=== PATIENT | male | born 1950 | race Caucasian/White ===

== ENCOUNTER 2020-05-15 09:21 | Inpatient (IN) ==
--- NOTE | 2020-04-25 19:48 | PAT Medication Instructions ---
Medication Instructions Date of Service April 25, 2020 Home Medications Aspirin [Aspir-81] 81 mg PO QAM atenolol 50 mg PO QAM atorvastatin 40 mg PO QAM naproxen sodium [Aleve] 220 mg PO QAM omeprazole 20 mg PO DAILY PRN ASK your surgeon for instructions naproxen sodium [Aleve] 220 mg PO QAM Take morning of surgery With a small sip of water, OTHERWISE NOTHING TO EAT OR DRINK AFTER MIDNIGHT: Aspirin [Aspir-81] 81 mg PO QAM atenolol 50 mg PO QAM atorvastatin 40 mg PO QAM omeprazole 20 mg PO DAILY PRN (if needed) Other Notes If you have any questions please call us at [phone] or [phone] or [phone] or [phone]
--- NOTE | 2020-04-27 11:53 | Anesthesiology Consultation ---
Date of Service April 27, 2020 Assessment & Plan (1) Encounter for pre-operative examination: Per PAT assessment on 04/27: Travel screen- Lives in [facility]. Travel to [place] weekly (to visit family). Used social distancing, mask, frequent hand washing. No known COVID-19 positive contacts. No current COVID-19 related symptoms. No hx of COVID-19 testing in past 30 days. Patient scheduled for preop protocol COVID-19 testing on 05/09 ([facility] [place] Awaiting results. Chart Review Chart Review: Acceptable Risk for Surgery (pending COVID testing) and Patient seen in Pre Admission Testing Teaching & Discussion Pre-Anesthesia Teaching/Discussion Notes: Instructed NPO after midnight before surgery,except medications with 15 cc of water. Medication instructions provided according to the [facility] guidelines. History Surgery Operation Date: 05/15/20 09:30 Proposed Procedures p Left Total Knee Arthroplasty - Mendel Bray MD Height/Weight Height: 5 ft 10 in Weight: 95 kg Allergies Allergy/AdvReac Type Severity Reaction Status Date / Time No Known Allergies Allergy Unknown Verified 04/25/20 13:19 Medications Home Medications Medication Instructions Recorded Confirmed Last Taken aspirin [Aspir-81] 81 mg PO QAM 04/25/20 04/25/20 Unknown atenolol 50 mg PO QAM 04/25/20 04/25/20 Unknown atorvastatin 40 mg PO QAM 04/25/20 04/25/20 Unknown naproxen sodium [Aleve] 220 mg PO QAM 04/25/20 04/25/20 Unknown omeprazole 20 mg PO DAILY PRN 04/25/20 04/25/20 Unknown Past Medical History Medical History GERD (gastroesophageal reflux disease) controlled Hearing deficit Hyperlipidemia Hypertension Kidney stones Osteoarthritis Exercise / Class Metabolic Activity II 4-5 Yardwork/Stairs/Walk up hill Past Family History Family History Mother Diabetes Father Myocardial infarction Past Surgical History Surgical History History of appendectomy History of colonoscopy History of cystoscopy History of tooth extraction Past Anesthesia History No Hx of Anesthesia Complications and No Family Hx of Anesthesia Complications History of PONV No Hx of PONV and No Hx of Motion Sickness Social History Smoking Status: Former smoker Do You Dip or Chew Tobacco: No (QUIT 40 YRS) Smoking End Date: Quit 47 YRS AGO Hx Alcohol Use: Yes Alcohol type: beer alcohol intake frequency: a few times a week Hx Substance Use: No substance use type: does not use Review of Systems Patient denies chest pain, shortness of breath, dyspnea on exertion, fever, chills, cough, wheezing, palpitations. Physical Exam Vital Signs VITALS BP 144/85 P 57 TEMP 98.1 SP02 96%RA RESP 16 PHYSICAL Full neck and c-spine range of motion. Full TMJ range of motion. TMD 3 finger breaths Mallampati Score 3 Dentition: full dentures on upper Lungs: clear throughout to auscultation Cardiac: regular rate and rhythm, no murmurs noted Spine: normal Carotid arteries: negative bruit Extremities: no edema Trimmed marin Testing Laboratory Results 04/27/20 12:09 04/27/20 12:09 PT 10.7 Seconds (9.0-12.0) 04/27/20 12:09 INR 1.0 (0.9-1.1) 04/27/20 12:09 APTT 26.2 Seconds (21.0-31.0) 04/27/20 12:09 Hemoglobin A1c 6.3 % (4.5-5.6) H 04/27/20 12:09 Urine Color Dark Yellow 04/27/20 12:09 Urine Appearance Clear (Clear) 04/27/20 12:09 Urine pH 5.0 (4.5-7.5) 04/27/20 12:09 Ur Specific [place] 1.026 (1.000-1.030) 04/27/20 12:09 Urine Protein Negative (Negative) 04/27/20 12:09 Urine Glucose (UA) Negative (Negative) 04/27/20 12:09 Urine Ketones Negative (Negative) 04/27/20 12:09 Urine Nitrite Negative (Negative) 04/27/20 12:09 Ur Leukocyte Esterase Negative (Negative) 04/27/20 12:09 Blood Type O Positive 04/27/20 12:09 Antibody Screen NEGATIVE 04/27/20 12:09 Electrocardiogram Date: 04/27/20 SB at 59bpm. iRBBB. Chest X-Ray Date: 04/27/20 Findings: + NAD Stress Test Date: 02/10/19 Type: DSE Stress echo negative for inducible ischemia by EKG/echo criteria. 5/10 chest pain (burning) radiation to the jaw (clinical significance is unknown per report). 96% MPHR. LVEF 55-59%. Mild MR/TR.
[2020-04-27 12:45] LABS: Appearance Urine Clear (Clear); Basophils # (auto) 0.04 K/uL (0-0.2); Basophils % (auto) 0.4 %; Bilirubin Urine Negative (Negative); Blood Urine Negative (Negative); Color Urine Dark Yellow; Eosinophils # (auto) 0.11 K/uL (0-0.5); Eosinophils % (auto) 1.2 %; Glucose Urine UA Negative (Negative); Hematocrit (blood only) 47.6 % (42-52); Hemoglobin 16.2 g/dL (14.0-18.0); Immature Granulocytes # (auto) 0.03 K/uL (0.00-0.02); Immature Granulocytes % (auto) 0.3 %; Ketones Urine Negative (Negative); Leukocyte Esterase Urine Negative (Negative); Lymphocytes # (auto) 2.55 K/uL (1.2-3.4); Lymphocytes % (auto) 26.7 %; Mean Corpuscular Hemoglobin 31.8 pg (25-34); Mean Corpuscular Volume 93.3 fL (80-100); Mean Platelet Volume 10.4 fL (7.4-10.4); Monocytes % (auto) 7.3 %; Neutrophils # (auto) 6.11 K/uL (1.4-6.5); Neutrophils % (auto) 64.1 %; Nitrite Urine Negative (Negative); Platelet Count 197 K/uL (130-400); Protein Urine Negative (Negative); RDW Coefficient of Variation 12.5 % (11.5-14.5); RDW Standard Deviation 42.7 fL (36.4-46.3); Specific Gravity Urine 1.026 (1.000-1.030); Urobilinogen Urine Negative (Negative); White Blood Count 9.54 K/uL (4.8-10.8)
--- NOTE | 2020-04-27 12:48 | Electrocardiogram Report ---
Test Reason : Blood Pressure : / mmHG Vent. Rate : 059 BPM Atrial Rate : 059 BPM P-R Int : 168 ms QRS Dur : 108 ms QT Int : 424 ms P-R-T Axes : 020 -14 000 degrees QTc Int : 419 ms Sinus bradycardia Incomplete right bundle branch block Borderline ECG When compared with ECG of 27-APR-2008 16:20, Incomplete right bundle branch block is now Present Confirmed by Enrique Carlton ([id number]) on 04/27/2020 12:48:14 PM Referred By: Mendel Bray Confirmed By:Enrique Carlton
[2020-04-27 12:58] LABS: BUN Creatinine Ratio 17.5 (10-20); Calcium 8.8 mg/dl (8.5-10.1); Creatinine Clr Calc Pharmacy 86.4 ml/min; Est GFR (African American) 94.4; Est GFR (Non-African American) 81.5; Potassium 4.4 mmol/L (3.5-5.1)
[2020-04-27 12:59] LABS: Partial Thromboplastin Ratio 0.9; Partial Thromboplastin Time 26.2 Seconds (21.0-31.0); Prothrombin Time 10.7 Seconds (9.0-12.0)
--- NOTE | 2020-04-27 13:08 | XRay Report ---
XR chest Pre-admission PA/Lat HISTORY: Preop. COMPARISON: None. FINDINGS: The lungs are clear. Cardiac silhouette is normal in size. No pleural effusions. No pneumot horax. IMPRESSION: No acute process. ACT 112: Negative or not required by law. Electronically signed by: Dwight Galicia M.D. 04/27/2020 1:07 PM
[2020-04-27 13:35] LABS: Estimated Average Glucose 134 mg/dl; Hemoglobin A1C 6.3 % (4.5-5.6)
--- NOTE | 2020-05-14 15:14 | History and Physical Report ---
DATE OF ADMISSION: 05/15/2020 CHIEF COMPLAINT: Left knee pain. HISTORY OF PRESENT ILLNESS: This is a 69-year-old male patient of Dr. Bray'chelsy complaining of chronic left knee pain, longstanding, now progressively getting worse. The patient has failed conservative treatment including intraarticular injections, the use of glucosamine, anti-inflammatories and home exercise program. The patient has been diagnosed with end-stage osteoarthritis per clinical and radiographic exams. The patient has increased pain with weightbearing activities and his pain does interfere with his activities of daily living. The patient wished to proceed with a left total knee arthroplasty. PAST MEDICAL HISTORY: Hypertension, hypercholesterolemia, sleep apnea, rheumatoid arthritis, osteoarthritis, sciatica, acid reflux, dentures, kidney stones. SOCIAL HISTORY: Nonsmoker, occasional drinker. PAST SURGICAL HISTORY: Appendectomy. FAMILY HISTORY: Noncontributory. REVIEW OF SYSTEMS: Chronic left knee pain; otherwise, denies any shortness of breath, chest pain, nausea, vomiting or any other joint complaints. MEDICATIONS: 1. Atenolol 50 mg daily. 2. Atorvastatin 40 mg daily. 3. Glucosamine 2000 mg daily. 4. Omeprazole 20 mg as needed. 5. Aspirin 81 mg daily. 6. Aleve 220 mg as needed. ALLERGIES: No known drug allergies. PHYSICAL EXAMINATION: GENERAL: Well-developed, well-nourished 69-year-old male, in no acute distress. He is alert and oriented x3 and pleasant. HEENT: Normocephalic, atraumatic. Extraocular motions are intact. Pupils are equal and reactive to light. HEART: Regular rate and rhythm. No murmurs. LUNGS: Clear. ABDOMEN: Soft, nontender, bowel sounds present. EXTREMITIES: Left knee varus deformity with medial joint line tenderness. Positive crepitation, positive Kulwinder's. Mild effusion. Range of motion 0-120, 5/5 strength. Neurologically and neurovascularly intact in the left lower extremity. DIAGNOSES: Left knee end-stage osteoarthritis, hypertension, hypercholesterolemia, sleep apnea, rheumatoid arthritis, osteoarthritis, sciatica, acid reflux, dentures, history of kidney stones and dentures. PLAN: The patient was advised of his diagnosis. Indications, risks, benefits, postop course have all been reviewed. The patient wished to proceed with a left total knee arthroplasty. Necessary consent forms, preoperative testing and clearances will be obtained. [facility]ALTH SYSTEMGreg
--- NOTE | 2020-05-15 07:06 | History & Physical Bridge Note ---
Date of Service May 15, 2020 History & Physical Bridge Note I have examined the patient, reviewed the History & Physical and in the interval since the performance of the History & Physical I have noted the following changes of clinical significance: no changes noted
--- NOTE | 2020-05-15 09:15 | Post Operative Brief Note ---
Immediate Post Op Note v1 Date of Surgery May 15, 2020 Pre & Post Diagnosis Operation Date: 05/15/20 07:00 Pre-Op Diagnosis: Left Knee Osteoarthritis Post-Op Diagnosis: Left Knee Osteoarthritis I identified the patient and participated in the time-out.: Yes Procedure Operation Date: 05/15/20 07:00 Actual Procedures p Left Total Knee Arthroplasty(Left) - Mendel Bray MD Surgeon Mendel Bray MD Hide Tanner LYNDA Jordan Estimated Blood Loss 5 Findings Consistent with Post-Op Diagnosis Specimens Bone cuts Drains Hemovac Drain (10Fr. Dual) Anesthesia Type MAC Spinal Regional Complications none Disposition Accompanied Patient To Recovery: No Disposition: Recovery Room Overlapping Procedure I was immediately available: during the entire case.
[~2020-05-15 09:21] MED LIST: ACETAMINOPHEN 500 MG TAB PO SCH; ATROPINE SULFATE 0.1 MG/ML 10ML SYR IV PRN; BACITRACIN INJ 50,000 UNIT VIAL ONE; BUPIVACAINE 0.5 % 5 MG/1 ML PF 10ML VIAL ONE; CEFAZOLIN 2000MG 2,000 MG/15 ML SYR IV SCH; CeleBREX 200 MG CAP PO SCH; FAMOTIDINE 20 MG TAB PO SCH; GABAPENTIN 300 MG CAP PO SCH; HYDROmorphone INJ 1 MG/ML SYRINGE IV PRN; KETOROLAC 30 MG/ML VIAL IV PRN; LR 500ML BOLUS, THEN 15ML/HR IV SCH; METOCLOPRAMIDE HCL 10 MG TABLET PO SCH; MIDAZOLAM HCL 1 MG/ML 2ML VIAL ONE; ONDANSETRON INJ 2 MG/ML 2 ML VIAL IV PRN; ORTHO JOINT ANESTHETIC ONE; PROPOFOL IV EMULSION 10 MG/ML 20 ML VIAL IV ONE; ROPIVACAINE 0.5% 5 MG/ML 30 ML VIAL ONE; ROPIVACAINE 0.5% HCL/PF 150 MG, BUPIVACAINE 0.5% MPF 30 ML, EPINEPHrine 30MG/30ML (OR U... INSTIL SCH; TRANEXAMIC ACID 1,000 MG **IV Intra-op IV SCH; TRANEXAMIC ACID 1,000 MG **IV Pre-op IV SCH; dexAMETHasone 4 MG TAB PO SCH; ePHEDrine sulfate 50 MG/ML AMP IV PRN; fentaNYL citrate 100 MCG/2 ML VIAL ONE
--- NOTE | 2020-05-15 09:31 | Operative Report ---
Post Operative Report Pre & Post Diagnosis Operation Date: 05/15/20 07:00 Pre-Op Diagnosis: Left Knee Osteoarthritis Post-Op Diagnosis: Left Knee Osteoarthritis I identified the patient and participated in the time-out.: Yes Procedure Operation Date: 05/15/20 07:00 Actual Procedures p Left Total Knee Arthroplasty(Left) - Mendel Bray MD Surgeon Mendel Bray MD Engineer/Conductor LYNDA Jordan Estimated Blood Loss 5 Findings Consistent with Post-Op Diagnosis Specimens Bone cuts Drains 2 Hemovac Anesthesia Type MAC Spinal Regional Complications none Disposition Accompanied Patient To Recovery: No Disposition: Recovery Room Indications 69-year-old male progressive osteoarthritis in left knee. Patient has advanced patellofemoral OA on lateral x-rays and has a varus knee with medial compartment OA [id number] medial compartment. Description of Procedure Patient taken to the operating room placed supine on the operating table and anesthetized under spinal MAC regional anesthesia. Exam under anesthesia demonstrated varus knee good range of motion 0 through 130 no instability. A pneumatic tourniquet was placed about the thigh of the left lower extremity. The left lower extremity was prepped and draped in usual fashion. Leg was elevated exsanguinated with an Esmarch bandage and the pneumatic was raised to 325 mm mercury. An anterior incision was made across the left knee. The skin was incised longitudinally subcutaneous flaps were elevated and an incision was made through the medial retinaculum extending up into the mid third of the quadriceps tendon and extended down to the medial tibial tubercle. Intra- articular findings demonstrated bicompartmental osteoarthritis medial comp artment patellofemoral joint with multiple loose bodies. The knee was exposed by excising the infrapatellar fat pad, excising the meniscal remnants, loose bodies and anterior cruciate ligament. Any inflamed synovial tissue was resected. The fat pad over the anterior femur was resected for placement of the component in that area. The lateral synovial bands were release. Appropriate releases were performed to balance ligaments. Only minor medial releases required. The femur was exposed. Intramedullary drill hole was made into the canal and the guide subhash placed in the distal femoral cut was made with a standard cut at 5 degree valgus. The femoral sizer was pinned in position. The femur was sized for a 9 standard CR component. The size 9 4-in-1 cutting block was placed. The anterior and posterior chamfer cuts were made. The knee was extended and a subperiosteal peel lateral release was performed around the patella. The patella width was measured and width was reproduced using freehand cut technique. The 38 x 9.5 millimeter symmetrical patella was used. 3 drill holes are made for the pegs. The tibia was exposed. An external tibial cutting guide was positioned to make a perpendicular cut to the long axis of the tibia with appropriate posterior slope. the proximal cut was made with the oscillating saw. All osteophytes were resected. The lamina career development associate was used to assess ligamentous balance and the ligaments were balanced in extension and flexion. The tibia was reexposed and measured for a size F tibial component. This was externally rotated in line with the tibial tubercle and the fixation pins were drilled. The proximal tibia was fashioned with the drill and punch. The size 9 CR femoral trial was inserted. The trial MC inserts were used. The 10 mm insert gave balanced ligaments through full range of motion. The patella tracked slight lateral liftoff so an extrasynovial lateral release was performed and the patella tracked centrally. the trials were removed. The orthomix anesthetic cocktail was injected per protocol. The knee was then copiously irrigated with pulsatile lavage antibiotic solution with bacitracin. The final components were cemented with Simplex cement. The final components were [employer] persona 9 standard CR femoral component left, F tibia, 10 MC poly-insert, 38 x 9.5 mm symmetrical patella. While the cement cured with the knee in full extension the Betadine soak was used per protocol. After the cement cured, the knee joint was copiously irrigated with antibiotic solution with bacitracin. 2 drains were brought out laterally and connected to a Hemovac. The quadriceps tendon and medial retinaculum were closed with interrupted [id number] #1 Vicryl sutures. The knee was taken through a full range of motion and repair was secure. The subcutaneous tissues were closed with 2-0 Vicryl sutures and skin was closed with gilbert. Sterile dressings were applied and the patient tolerated the procedure well. Smith HOWELL my physician optometric assistant, assisted in soft tissue retraction instrument management leg positioning the closure and will participate in the postoperative care of the patient. I attest to the content of the Intraoperative Record and any orders documented therein. Any exceptions are noted below.
--- NOTE | 2020-05-15 09:58 | Anesthesiology Progress Note ---
Date of Service May 15, 2020 Anesthesia Post Procedure Vital Signs Vital Signs: Temp Pulse Pulse Resp BP Pulse Ox 05/15/20 09:55 60 19 119/70 97 05/15/20 09:45 36.7 C 58 L 13 110/66 98 05/15/20 09:35 61 16 114/62 99 05/15/20 09:25 63 17 102/67 98 05/15/20 09:18 36.8 C 66 8 L 107/57 L 100 05/15/20 06:03 57 L 16 160/91 H 97 05/15/20 05:32 36.7 C 61 18 160/96 H 97 Transfer of Care Handoff Completed per policy Notes Mental Status: alert / awake / arousable Patient Amnestic to Procedure: Yes Nausea / Vomiting: adequately controlled Pain: adequately controlled Airway Patency, RR, SpO2: stable & adequate BP & HR: stable & adequate Hydration State: stable & adequate Neuraxial Anesthesia: was administered and sensory block is resolving Anesthetic Complications: no major complications apparent
--- NOTE | 2020-05-15 10:09 | XRay Report ---
XR knee LT 1 or 2V routine CLINICAL HISTORY: Postoperative evaluation. COMPARISON: None FINDINGS: Alignment of the total left knee arthroplasty is anatomic. There is no fracture or unexpec jana radiopaque foreign body. There are skin gilbert. IMPRESSION: Expected findings following total left knee arthroplasty. ACT 112: Negative or not required by law. Electronically signed by: Juan C Acharya M.D. 05/15/2020 10:08 AM
[2020-05-15] MEDS ORDERED: HYDROmorphone INJ 0.5 MG/0.5 ML SYR IV PRN (10:49)
[2020-05-15] MEDS ORDERED: bisacodyL 10 MG SUPP PR PRN (10:49)
[2020-05-15] MEDS ORDERED: ONDANSETRON INJ 2 MG/ML 2 ML VIAL IV PRN (10:49)
[2020-05-15] MEDS ORDERED: MAGNESIUM HYDROXIDE SUSP 30 ML UDC PO PRN (10:49)
[2020-05-15] MEDS ORDERED: PANTOprazole 40 MG TAB PO PRN (10:49)
[2020-05-15] MEDS ORDERED: NALOXONE HCL 0.4 MG/1 ML VIAL/CARP IV PRN (10:49)
--- NOTE | 2020-05-15 11:20 | Consultation ---
Date of Consultation May 15, 2020 Assessment & Plan (1) S/P total knee arthroplasty: (2) Osteoarthritis of left knee: S/P L TKA by Dr. Bray POD #0 EBL 5 ml; hemovac in place tolerated procedure wall pain/wound management per ortho activity and therapy as directed by ortho wean o2 as able, continue to encourage incentive spirometry monitor H&H, pre op 16.2 and 47.6 (3) Hypertension: blood pressure stable continue atenolol (4) Hyperlipidemia: continue statin (5) DVT prophylaxis: ASA BID per ortho Patient was seen and examined in collaboration with Dr. Deng, please see addendum Starting 05/16/20 pt will be under the care of Dr. Reddy Thank you for this consultation. We will follow the patient with you during their hospital stay. You [facility] via pager @ [phone]. Supervising Physician Co-Signing Physician Notes Patient 69-year-old male with history of hypertension, hyperlipidemia, GERD and other medical problems was seen and examined postop after having left total knee arthroplasty by Dr. Martinez. Patient currently is doing well postop. He denies any chest pain, shortness of breath, nausea, vomiting, abdominal pain. Left knee pain at surgical site is well controlled. On exam patient is well-built and nourished, no apparent distress, normocephalic atraumatic, lungs are clear to auscultation, S1-S2, no murmur, abdomen soft, nontender, normal bowel sounds, left knee surgical site in dressing, no pedal edema, grossly no focal neurologic deficits. Patient is contracted for postop medical management. S/P left knee arthroplasty. POD#0. Monitor for postop anemia. Continue bowel regimen to prevent constipation. Continue incentive spirometry. Activity, DVT prophylaxis, pain control as per primary team. Continue atenolol for blood pressure. Continue statin for hyperlipidemia. I personally reviewed the record. Patient is interviewed and examined at bedside. Patient's care is coordinated with Arti Burkett PA-C. Please refer to the documentation above for details of patient's p resentation and for discussion of other issues. History of Present Illness Requesting Physician: Dr. Bray Reason for Consultation: Postop medical management Attending Physician: Mendel Bray MD History of Present Illness This is a 69-year-old male with significant past medical history of HTN, HLD, GERD who underwent elective left total knee arthroplasty today by Dr. rBay. He tolerated procedure well. He will under effects of anesthesia and therefore no pain to left leg. Denies any postop nausea, vomiting, chest pain, shortness of breath, cough, lightheadedness, dizziness or syncope. He is currently on oxygen and using incentive spirometry. He has no postoperative complaints. He did take his morning atenolol prior to procedure. In regards to his hypertension it is controlled outpatient with atenolol and he takes atorvastatin for control of his hyperlipidemia. Allergies Allergy/AdvReac Type Severity Reaction Status Date / Time No Known Allergies Allergy Unknown Verified 05/15/20 05:29 Home Medications Home Medications Medication Instructions Recorded Confirmed Type aspirin [Aspir-81] 81 mg PO QAM 04/25/20 04/25/20 History atenolol 50 mg PO QAM 04/25/20 04/25/20 History atorvastatin 40 mg PO QAM 04/25/20 05/15/20 History naproxen sodium [Aleve] 220 mg PO QAM 04/25/20 05/15/20 History omeprazole 20 mg PO DAILY PRN 04/25/20 04/25/20 History Patient History Medical History GERD (gastroesophageal reflux disease) controlled Hearing deficit Hyperlipidemia Hypertension Kidney stones Osteoarthritis Surgical History History of appendectomy History of colonoscopy History of cystoscopy History of tooth extraction Family History Mother Diabetes Father Myocardial infarction Social History Preferred Language: Vietnamese Communication Ability: Effective Electric Fork Operator Required: No Beliefs That Will Affect Care: None Current Living Situation: Spouse Other Information That Helps Us Care for You: No Feels Safe at Home: Yes Safety Concerns: Feels Safe At This Time Smoking Status: Former smoker Do You Dip or Chew Tobacco: No (QUIT 40 YRS) ; Smoking End Date: Quit 47 YRS AGO ; Second Hand Exposure: No ; Tobacco Cessation Education Requested by Patient: No Hx Alcohol Use: Yes Alcohol type: beer Hx Substance Use: No Review of Systems Review of Systems: All systems reviewed & are unremarkable except as noted in HPI & below Physical Exam Physical Exam: Constitutional: WD/WN, vitals as above, NAD, sitting up in bed, pleasant, conversing easily Head: Normocephalic, Atraumatic Eyes: PERRL, conjunctivae normal, anicteric sclerae ENMT: external ear and nose normal, oropharynx normal Neck: trachea midline, no thyromegaly normal visual inspection Respiratory: normal respiratory effort, lungs clear to auscultation, no wheeze, rales, rhonchi. Normal insp/exp effort, no accessory muscle use Cardiovascular: RRR, no murmur, no edema Vessels: no JVD or carotid bruit Chest: normal inspection of chest Abdomen: normal bowel sounds, soft, nontender, no hepatosplenomegaly Musculoskeletal: no cyanosis or clubbing, upper extremities motor strength 5/5, lower extremity not tested given recent procedure. Left lower extremity TKA dressing CDI, Hemovac in place, NVI distally Skin: no rashes, warm and dry normal turgor Neurologic: PERRL, EOMI, accommodation nl, no face palsy, no dysarthria CN's II-XI intact bilaterally and moves all extremities Psychiatric: A+Ox3, euthymic affect Lymphatic: no cervical or axillary lymphadenopathy : deferred Results & Data ([facility]) Vital Signs (Past 12 Hours) Vital Signs Temp Pulse Pulse Resp BP Pulse Ox 05/15/20 10:45 36.2 C L 61 16 135/80 98 05/15/20 10:15 36.4 C L 59 L 16 134/79 97 05/15/20 10:05 64 16 134/74 94 05/15/20 09:55 60 19 119/70 97 05/15/20 09:45 36.7 C 58 L 13 110/66 98 05/15/20 09:35 61 16 114/62 99 05/15/20 09:25 63 17 102/67 98 05/15/20 09:18 36.8 C 66 8 L 107/57 L 100 05/15/20 06:03 57 L 16 160/91 H 97 05/15/20 05:32 36.7 C 61 18 160/96 H 97 Laboratory Results Preoperative lab work done on 04/27/2020 CBC WBC 9.54, H&H 16.2 and 47.6, platelet 197 BMP sodium 139, K4.4, chloride 109, BUN 17, creatinine 0.96, glucose 109, A1c 6.3 Diagnostic Findings CXR: IMPRESSION: No acute process. Knee Xray: IMPRESSION: Expected findings following total left knee arthroplasty. Medications Administered Discontinued Medications Acetaminophen (Tylenol) 1,000 mg PO PREOP [facility] Stop: 05/15/20 18:00 Last Admin: 05/15/20 05:54 Dose: 1,000 mg Documented by: [id number] Bacitracin (Bacitracin) Confirm Administered Dose 50,000 units .ROUTE .[facility] Stop: 05/15/20 06:44 Last Admin: 05/15/20 08:46 Dose: 50,000 units Documented by: [id number] Celecoxib (Celebrex) 200 mg PO PREOP [facility] Stop: 05/15/20 18:00 Last Admin: 05/15/20 05:55 Dose: 200 mg Documented by: [id number] Dexamethasone (Decadron) 8 mg PO PREOP [facility] Stop: 05/15/20 18:00 Last Admin: 05/15/20 05:54 Dose: 8 mg Documented by: [id number] Famotidine (Pepcid) 20 mg PO PREOP [facility] Stop: 05/15/20 18:00 Last Admin: 05/15/20 05:54 Dose: 20 mg Documented by: [id number] Gabapentin (Neurontin) 300 mg PO PREOP [facility] Stop: 05/15/20 18:00 Last Admin: 05/15/20 05:54 Dose: 300 mg Documented by: [id number] Lactated Ringer's (Lr) 1,000 mls @ 15 mls/hr IV .Q24H [facility] Stop: 05/15/20 18:00 Last Infusion: 05/15/20 07:20 Dose: 0 mls/hr Documented by: [id number] Admin: 05/15/20 05:54 Dose: 15 mls/hr Documented by: [id number] Cefazolin Sodium (Ancef 2000mg) 2,000 mg in 15 mls @ 3.75 mls/min IV PREOP [facility]; Protocol Stop: 05/15/20 18:00 Last Admin: 05/15/20 07:29 Dose: 3.75 mls/min Documented by: [id number] Tranexamic Acid (Tranexamic Acid / 0.7% Nacl) 1,000 mg in 100 mls @ 600 mls/hr IV TODAY@0600 [facility] Stop: 05/15/20 18:00 Last Infusion: 05/15/20 07:20 Dose: 0 mls/hr Documented by: [id number] Admin: 05/15/20 07:06 Dose: 600 mls/hr Documented by: [id number] Tranexamic Acid (Tranexamic Acid / 0.7% Nacl) 1,000 mg in 100 mls @ 600 mls/hr IV TODAY@0600 [facility] Stop: 05/15/20 18:00 Last Infusion: 05/15/20 10:53 Dose: 0 mls/hr Documented by: [id number] Admin: 05/15/20 08:40 Dose: 600 mls/hr Documented by: [id number] Ropivacaine 150 mg/Bupivacaine HCl 30 ml/Epinephrine HCl 0.15 mg/Ketorolac Tromethamine 30 mg/Dexamethasone 4 mg/ Ketamine HCl 10 mg/ Clonidine HCl 100 mcg/ Sodium Chloride 93.35 mls @ 0 mls/hr INSTIL PREOP [facility] Stop: 05/15/20 06:01 Last Admin: 05/15/20 08:45 Dose: 93.35 mls/hr Documented by: [id number] Metoclopramide HCl (Reglan) 10 mg PO PREOP [facility] Stop: 05/15/20 18:00 Last Admin: 05/15/20 05:54 Dose: 10 mg Documented by: [id number] Miscellaneous (Ortho Joint Anesthetic) Confirm Administered Dose 1 ea .ROUTE .[facility]-MED ONE Stop: 05/15/20 06:43 Last Admin: 05/15/20 08:02 Dose: Not Given Documented by: [id number] ECG Rate (beats per minute): 59 Findings: + RBBB
[2020-05-15] MEDS: ACETAMINOPHEN 500 MG TAB PO SCH ×2 (13:59→21:45)
[2020-05-15] MEDS: CEFAZOLIN 2000MG 2,000 MG/15 ML SYR IV SCH ×2 (15:58→23:16)
[2020-05-15] MEDS: SODIUM CHLORIDE 0.9% 1000ML 1,000 ML IV SCH ×2 (17:52→21:48)
[2020-05-15] MEDS: CeleBREX 200 MG CAP PO SCH (21:46)
[2020-05-15] MEDS: SENNA 8.6 MG TAB PO SCH (21:46)
[2020-05-15] MEDS: DOCUSATE SODIUM 100 MG CAP PO SCH (21:46)
[2020-05-15] MEDS: ASPIRIN 81 MG ECTAB PO SCH (21:46)
[2020-05-16] MEDS: ACETAMINOPHEN 500 MG TAB PO SCH ×3 (05:48→21:28)
[2020-05-16 07:17] LABS: Hematocrit (blood only) 37.6 % (42-52); Hemoglobin 13.2 g/dL (14.0-18.0); Mean Corpuscular Hemoglobin 31.8 pg (25-34); Mean Corpuscular Hgb Conc 35.1 g/dL (32-36); Mean Corpuscular Volume 90.6 fL (80-100); Mean Platelet Volume 9.8 fL (7.4-10.4); Platelet Count 182 K/uL (130-400); RDW Coefficient of Variation 12.3 % (11.5-14.5); RDW Standard Deviation 40.5 fL (36.4-46.3); Red Blood Count 4.15 M/uL (4.7-6.1); White Blood Count 16.38 K/uL (4.8-10.8)
[2020-05-16 07:44] LABS: BUN Creatinine Ratio 18.8 (10-20); Calcium 8.6 mg/dl (8.5-10.1); Creatinine Clr Calc Pharmacy 82.8 ml/min; Est GFR (African American) 89.9; Est GFR (Non-African American) 77.5; Potassium 4.1 mmol/L (3.5-5.1)
[2020-05-16] MEDS: CeleBREX 200 MG CAP PO SCH ×2 (08:25→21:28)
[2020-05-16] MEDS: MULTIVITAMIN TAB PO SCH (08:25)
[2020-05-16] MEDS: ATENOLOL 50 MG TABLET PO SCH (08:25)
[2020-05-16] MEDS: DOCUSATE SODIUM 100 MG CAP PO SCH ×2 (08:25→21:28)
[2020-05-16] MEDS: ASPIRIN 81 MG ECTAB PO SCH ×2 (08:25→21:28)
[2020-05-16] MEDS: OXYCODONE HCL IR 5 MG TAB (IMMEDIATE RELEASE) PO PRN ×2 (08:26→18:45)
[2020-05-16] MEDS: ATORVASTATIN 40 MG TAB PO SCH (08:26)
--- NOTE | 2020-05-16 08:42 | Orthopedic Progress Note ---
Date of Service May 16, 2020 Assessment & Plan (1) Osteoarthritis of left knee: POD #1, Left TKA PT/ OT DVT proph- ASA D/C planning- Home w OPPT As per medicine. Admission and Anticipated Discharge Date Admission Date: May 15, 2020 Subjective POD #1, Doing well. Denies SOB, CP, N/V. Pain controlled well. Wishes OPPT on D/C. Physical Exam Physical Exam: Left knee dressings c/d/i, no drainage. Toes/ ankle mobile. Drain in tact. No calf tenderness. A&Ox3. Results & Data ([facility]) Vital Signs (Past 12 Hours) Vital Signs Temp Pulse Resp BP BP Pulse Ox 05/16/20 07:38 36.5 C 70 18 133/74 95 05/16/20 02:55 36.6 C 71 16 147/80 H 96 05/15/20 23:26 36.5 C 69 16 163/82 H 95
--- NOTE | 2020-05-16 10:04 | Hospitalist Progress Note ---
Date of Service May 16, 2020 Assessment & Plan (1) S/P total knee arthroplasty: (2) Osteoarthritis of left knee: S/P L TKA by Dr. Bray POD #1 EBL 5 ml; hemovac in place 325ml tolerated procedure wall pain/wound management per ortho activity and therapy as directed by ortho continue to encourage incentive spirometry monitor H&H, pre op 16.2 and 47.6 (3) Leukocytosis: wbc 16k likely stress induced from surgery as well as pre op dexamethasone no s/sx of infection, afebrile monitor (4) Anemia: Preop H&H 16.2 and 47.6 Today H&H 13.2 and 37.6 acute blood loss with dilutional component from IVF (5) Hypertension: blood pressure stable continue atenolol (6) Hyperlipidemia: continue statin (7) DVT prophylaxis: ASA BID per ortho Patient was seen and examined in collaboration with Dr. Reddy, please see addendum Thank you for this consultation. We will follow the patient with you during their hospital stay. You can reach a [facility] the [facility] via pager @ [phone]. Admission and Anticipated Discharge Date Admission Date: May 15, 2020 Supervising Physician Co-Signing Physician Notes Pt was seen and examined. Agreed with Arti MARTINEZ exam, assessment and plan. 69-year-old male with significant past medical history of HTN, HLD, GERD, S/P day #1 Left Total Knee Arthroplasty performed by Dr. Bray. No postop complications noted. Continue pain control as per ortho. Continue Incentive spirometry. Fall precaution. Continue PT/OT. Will check CBC tomorrow to monitor hemoglobin and leukocytes. MD Maureen Subjective Patient was seen and examined in room 324. Follow-up left TKA. He is sitting up in bedside chair this morning. He ate all of his breakfast. He is overall feeling well. He does complain of some mild left knee discomfort. Overall slept well last evening. He denies fever, chills, sweats, l ightheadedness, dizziness, chest pain, shortness of breath, nausea, vomiting, abdominal pain. He is passing flatus but no BM. Urinating without difficulty. He offers no acute concerns. Review of Systems Review of Systems: All systems reviewed & are unremarkable except as noted in HPI & below Physical Exam Physical Exam: Gen: WD/WN, NAD, A&O x3 HEENT: Normocephalic, atraumatic, conjunctivae moist, sclerae anicteric, mucous membranes moist. Lung: Clear to Auscultation bilaterally, no wheezes/rales/rhonchi Heart: Regular rate, regular rhythm, no murmurs, rubs, or gallops Abdomen: Soft, NT, ND +BS x 4 Extremities: No edema, left knee dressing CDI, Hemovac in place, bilateral teds, bilateral pedal pulse +2, NVI distally Skin: Warm, no rash, negative turgor. Results & Data Results & Data ([facility]) Vital Signs (Past 12 Hours) Vital Signs Temp Pulse Resp BP BP Pulse Ox 05/16/20 07:38 36.5 C 70 18 133/74 95 05/16/20 02:55 36.6 C 71 16 147/80 H 96 05/15/20 23:26 36.5 C 69 16 163/82 H 95 Laboratory Results Short CBC 05/16/20 Range/Units 07:05 WBC 16.38 H (4.8-10.8) K/uL Hgb 13.2 L (14.0-18.0) g/dL Hct 37.6 L (42-52) % Plt Count 182 (130-400) K/uL BMP 05/16/20 07:05 Sodium 139 Potassium 4.1 Chloride 110 H Carbon Dioxide 24 BUN 19 H Creatinine 1.00 Glucose 131 H Calcium 8.6 Medications Administered Acetaminophen (Tylenol) 1,000 mg PO Q8 [facility] Stop: 06/14/20 13:59 Last Admin: 05/16/20 05:48 Dose: 1,000 mg Documented by: [id number] Admin: 05/15/20 21:45 Dose: 1,000 mg Documented by: [id number] Admin: 05/15/20 13:59 Dose: 1,000 mg Documented by: [id number] Aspirin (Ecotrin Ectab) 81 mg PO BID [facility] Stop: 06/14/20 20:59 Last Admin: 05/16/20 08:25 Dose: 81 mg Documented by: [id number] Admin: 05/15/20 21:46 Dose: 81 mg Documented by: [id number] Atenolol (Tenormin) 50 mg PO QAM [facility] Stop: 06/15/20 08:59 Last Admin: 05/16/20 08:25 Dose: 50 mg Documented by: [id number] Atorvastatin Calcium (Lipitor) 40 mg PO QAM [facility] Stop: 06/15/20 08:59 Last Admin: 05/16/20 08:26 Dose: 40 mg Documented by: [id number] Celecoxib (Celebrex) 200 mg PO BID [facility] Stop: 06/14/20 20:59 Last Admin: 05/16/20 08:25 Dose: 200 mg Documented by: [id number] Admin: 05/15/20 21:46 Dose: 200 mg Documented by: [id number] Docusate Sodium (Colace) 100 mg PO BID [facility] Stop: 06/14/20 20:59 Last Admin: 05/16/20 08:25 Dose: 100 mg Documented by: [id number] Admin: 05/15/20 21:46 Dose: 100 mg Documented by: [id number] [facility]ivit[facility] ([facility]amin Tab) [facility] [place] Stop: 06/15/20 08:59 Last Admin: 05/16/20 08:25 Dose: 1 tab Documented by: [id number] Oxycodone HCl (Roxicodone Immediate Rel) 5 - 10 mg PO Q4H PRN PRN Reason: Pain or Pre PT Stop: 05/29/20 10:48 Last Admin: 05/16/20 08:26 Dose: 10 mg Documented by: [id number] Sennosides (Senokot) 17.2 mg PO HS [facility] Stop: 06/14/20 20:59 Last Admin: 05/15/20 21:46 Dose: 17.2 mg Documented by: [id number] Discontinued Medications Acetaminophen (Tylenol) 1,000 mg PO PREOP [facility] Stop: 05/15/20 18:00 Last Admin: 05/15/20 05:54 Dose: 1,000 mg Documented by: [id number] Bacitracin (Bacitracin) Confirm Administered Dose 50,000 units .ROUTE .[facility] Stop: 05/15/20 06:44 Last Admin: 05/15/20 08:46 Dose: 50,000 units Documented by: [id number] Celecoxib (Celebrex) 200 mg PO PREOP [facility] Stop: 05/15/20 18:00 Last Admin: 05/15/20 05:55 Dose: 200 mg Documented by: [id number] Dexamethasone (Decadron) 8 mg PO PREOP [facility] Stop: 05/15/20 18:00 Last Admin: 05/15/20 05:54 Dose: 8 mg Documented by: [id number] Famotidine (Pepcid) 20 mg PO PREOP [facility] Stop: 05/15/20 18:00 Last Admin: 05/15/20 05:54 Dose: 20 mg Documented by: [id number] Gabapentin (Neurontin) 300 mg PO PREOP [facility] Stop: 05/15/20 18:00 Last Admin: 05/15/20 05:54 Dose: 300 mg Documented by: [id number] Lactated Ringer's (Lr) 1,000 mls @ 15 mls/hr IV .Q24H [facility] Stop: 05/15/20 18:00 Last Infusion: 05/15/20 07:20 Dose: 0 mls/hr Documented by: [id number] Admin: 05/15/20 05:54 Dose: 15 mls/hr Documented by: [id number] Cefazolin Sodium (Ancef 2000mg) 2,000 mg in 15 mls @ 3.75 mls/min IV PREOP [facility]; Protocol Stop: 05/15/20 18:00 Last Admin: 05/15/20 07:29 Dose: 3.75 mls/min Documented by: [id number] Tranexamic Acid (Tranexamic Acid / 0.7% Nacl) 1,000 mg in 100 mls @ 600 mls/hr IV TODAY@0600 [facility] Stop: 05/15/20 18:00 Last Infusion: 05/15/20 07:20 Dose: 0 mls/hr Documented by: [id number] Admin: 05/15/20 07:06 Dose: 600 mls/hr Documented by: [id number] Tranexamic Acid (Tranexamic Acid / 0.7% Nacl) 1,000 mg in 100 mls @ 600 mls/hr IV TODAY@0600 [facility] Stop: 05/15/20 18:00 Last Infusion: 05/15/20 10:53 Dose: 0 mls/hr Documented by: [id number] Admin: 05/15/20 08:40 Dose: 600 mls/hr Documented by: [id number] Ropivacaine 150 mg/Bupivacaine HCl 30 ml/Epinephrine HCl 0.15 mg/Ketorolac Tromethamine 30 mg/Dexamethasone 4 mg/ Ketamine HCl 10 mg/ Clonidine HCl 100 mcg/ Sodium Chloride 93.35 mls @ 0 mls/hr INSTIL PREOP [facility] Stop: 05/15/20 06:01 Last Admin: 05/15/20 08:45 Dose: 93.35 mls/hr Documented by: [id number] Cefazolin Sodium (Ancef 2000mg) 2,000 mg in 15 mls @ 3.75 mls/min IV Q8H [facility]; Protocol Stop: 05/15/20 23:33 Last Admin: 05/15/20 23:16 Dose: 3.75 mls/min Documented by: [id number] Admin: 05/15/20 15:58 Dose: 3.75 mls/min Documented by: [id number] Sodium Chloride (Nss 1000ml) 1,000 mls @ 100 mls/hr IV .Q10H [facility] Stop: 05/16/20 10:59 Last Admin: 05/15/20 21:48 Dose: Not Given Documented by: [id number] Infusion: 05/15/20 21:48 Dose: 0 mls/hr Documented by: [id number] Admin: 05/15/20 17:52 Dose: 100 mls/hr Documented by: [id number] Metoclopramide HCl (Reglan) 10 mg PO PREOP [facility] Stop: 05/15/20 18:00 Last Admin: 05/15/20 05:54 Dose: 10 mg Documented by: [id number] Miscellaneous (Ortho Joint Anesthetic) Confirm Administered Dose 1 ea .ROUTE .[facility] ONE Stop: 05/15/20 06:43 Last Admin: 05/15/20 08:02 Dose: Not Given Documented by: [id number]
[2020-05-16] MEDS: SENNA 8.6 MG TAB PO SCH (21:28)
[2020-05-17] MEDS: ACETAMINOPHEN 500 MG TAB PO SCH (05:38)
[2020-05-17 06:20] LABS: Hematocrit (blood only) 35.8 % (42-52); Hemoglobin 12.2 g/dL (14.0-18.0); Mean Corpuscular Hemoglobin 31.7 pg (25-34); Mean Corpuscular Hgb Conc 34.1 g/dL (32-36); Mean Platelet Volume 10.3 fL (7.4-10.4); Platelet Count 180 K/uL (130-400); RDW Coefficient of Variation 12.7 % (11.5-14.5); RDW Standard Deviation 43.1 fL (36.4-46.3); Red Blood Count 3.85 M/uL (4.7-6.1); White Blood Count 11.51 K/uL (4.8-10.8)
[2020-05-17 06:55] LABS: BUN Creatinine Ratio 20.4 (10-20); Calcium 8.2 mg/dl (8.5-10.1); Creatinine Clr Calc Pharmacy 72.6 ml/min; Est GFR (African American) 76.7; Est GFR (Non-African American) 66.2; Potassium 4.2 mmol/L (3.5-5.1)
--- NOTE | 2020-05-17 07:19 | Orthopedic Progress Note ---
Date of Service May 17, 2020 Assessment & Plan (1) Osteoarthritis of left knee: POD #2, Left TKA PT/ OT DVT proph- ASA D/C planning- Home w OPPT today As per medicine. Admission and Anticipated Discharge Date Admission Date: May 15, 2020 Subjective POD #2 doing well denies sob, cp, n/v did well in PT pain controlled well. Physical Exam Physical Exam: left knee silverlon c/d/i no calf tenderness toes/ ankle mobile A&Ox3 Results & Data ([facility]) Vital Signs (Past 12 Hours) Vital Signs Temp Pulse Resp BP Pulse Ox 05/16/20 23:51 36.6 C 63 16 123/68 96
--- NOTE | 2020-05-17 08:13 | Hospitalist Progress Note ---
Date of Service May 17, 2020 Assessment & Plan (1) S/P total knee arthroplasty: (2) Osteoarthritis of left knee: -S/P L TKA by Dr. Bray on this admission -hemovac management performed by orthopedics on this admission -post-operative blood counts no requiring blood tranfusions (3) Anemia: general stable post-operatively context of having surgery and hemovac (4) Leukocytosis: post-operative leukocytosis is downtrending, patient has been afebrile and therefor white counts were elevated from stress and recent steroids (5) Hypertension: continue atenolol (6) Hyperlipidemia: continue statin (7) DVT prophylaxis: aspirin Admission and Anticipated Discharge Date Admission Date: May 15, 2020 Subjective Patient to do some therapy before plns to be discharged by orthopedics. He reports he has been feeling well. No acute pain of the left knee. There is ice pack on left knee. we discussed his plans of outpatient followups Review of Systems Review of Systems: All systems reviewed & are unremarkable except as noted in Subjective Physical Exam Constitutional: comfortable Eyes: PERRL, conjunctivae normal, anicteric sclerae EOM intact bilaterally ENMT: external ear and nose normal, oropharynx normal Neck: trachea midline, no thyromegaly normal visual inspection Respiratory: normal respiratory effort, lungs clear to auscultation Cardiovascular: Rate/Rhythm: regular rate Gastrointestinal (Abdomen): normal bowel sounds, soft, nontender, no hepatosplenomegaly Musculoskeletal: left knee with ice Neurologic: PERRL, EOMI, accommodation nl, no face palsy, no dysarthria Psychiatric: A+Ox3, euthymic affect Results & Data Results & Data ([facility]) Vital Signs (Past 12 Hours) Vital Signs Temp Pulse Resp BP BP Pulse Ox 05/17/20 08:01 36.5 C 59 L 16 155/85 H 97 05/17/20 07:17 36.6 C 63 16 147/80 H 123/68 96 05/16/20 23:51 36.6 C 63 16 123/68 96
[2020-05-17] MEDS: ATORVASTATIN 40 MG TAB PO SCH (08:36)
[2020-05-17] MEDS: ATENOLOL 50 MG TABLET PO SCH (08:36)
[2020-05-17] MEDS: MULTIVITAMIN TAB PO SCH (08:36)
[2020-05-17] MEDS: ASPIRIN 81 MG ECTAB PO SCH (08:37)
[2020-05-17] MEDS: CeleBREX 200 MG CAP PO SCH (08:37)
[2020-05-17] MEDS: DOCUSATE SODIUM 100 MG CAP PO SCH (08:37)
--- NOTE | 2020-05-31 14:57 | Discharge Summary (DS) ---
HISTORY OF PRESENT ILLNESS: This is a 69-year-old male patient of Dr. Bray'chelsy complaining of chronic left knee pain, longstanding, now progressively getting worse. The patient has failed conservative treatment and elected to proceed with a left total knee arthroplasty. PAST MEDICAL HISTORY: Hypertension, hypercholesterolemia, sleep apnea, rheumatoid arthritis, osteoarthritis, sciatica, acid reflux, dentures and kidney stones. POSTOPERATIVE COURSE: The patient underwent a left total knee arthroplasty on 05/15/2020. He was followed closely with physical therapy, medical consultation, DVT prophylaxis in the form of aspirin and pain control. The patient did very well postoperatively and was discharged home on postoperative day #2. PHYSICAL EXAMINATION: On discharge, left knee Silverlon dressing was clean, dry and intact. There was no redness or drainage. He had no calf tenderness. Negative Homans sign. Toes and ankle were mobile. Neurologically and neurovascularly he is intact in his left lower extremity. DIAGNOSES: Left total knee arthroplasty, hypertension, hypercholesterolemia, sleep apnea, rheumatoid arthritis, osteoarthritis, sciatica, acid reflux, dentures and kidney stones. PLAN: The patient was advised of his diagnosis. He was discharged home on his preadmission medications with outpatient physical therapy. He will also add pain medications and aspirin for DVT prophylaxis. He will follow up as scheduled as an outpatient.
== END 2020-05-17 10:56 | disposition home or self-care (01) | DRG 470 ==
LOC: ASU 09:21 → 3E 09:22